=== PATIENT | male | born 1990 | race Caucasian/White ===

== ENCOUNTER 2017-02-09 11:41 | Emergency (ER) | payer SELFPAY ==
[~2017-02-09] VITALS: Ht 185.4 cm; Wt 128.5 kg
[~2017-02-09 11:41] MED LIST: DOXY100T PO; SULF1TAB47 PO; Z.0.NO CURRENT MEDS
[2017-02-09 11:54] VITALS: BP 124/82; PULSE 87; RESP 16; TEMP 97.9; O2SAT 96
--- NOTE | 2017-02-09 12:12 | PD ---
HPI Chief Complaint: Back/ Neck Pain or Injury Time Seen by Provider: 12:06 Travel History International Travel<30 days: No Contact w/Intl Traveler<30days: No Traveled to known affect area: No History of Present Illness HPI 26-year-old male presents to the emergency room for evaluation of low back pain with radiation into bilateral hips for the past week. Patient states it initially started after lifting a 500 pound barrel but worsened after he shoveled a few days later. Pain is localized to the middle lumbar region with radiation into both hips. There is no radiation down the legs. Pain is worsened with certain range of motion. He has been applying topical pain patches and heat without relief in symptoms. He has not taken anything for his symptoms. Denies upper or lower extremity paresthesias, saddle anesthesia, and loss of bowel or bladder control. Denies fever, chills, weight loss, IV drug use. PFSH Past Medical History Medical History: Denies Significant Hx Blood Disorders: No Diminished Hearing: No Tetanus Vaccination: > 5 Years Influenza Vaccination: No Past Surgical History Surgical History: No Previous Surgery Social History Alcohol Use: No Tobacco Use: No (quit 2015) Substance Use: No Allergies-Medications (Allergen,Severity, Reaction): Coded Allergies: No Known Allergies (Verified , 02/09/17) Reported Meds & Prescriptions Reported Meds & Active Scripts Active Ibuprofen 600 Mg Tab 600 Mg PO Q8HR PRN Robaxin (Methocarbamol) 750 Mg Tab 750 Mg PO Q8HR Review of Systems Except as stated in HPI: all other systems reviewed are Neg Physical Exam Narrative GENERAL: Well-nourished, well-developed male in no acute distress. Afebrile. Ambulatory. SKIN: Focused skin assessment warm/dry. HEAD: Normocephalic. EYES: No scleral icterus. No injection or drainage. NECK: Supple, trachea midline. No JVD or lymphadenopathy. CARDIOVASCULAR: Regular rate and rhythm without murmurs, gallops, or rubs. RESPIRATORY: Breath sounds equal bilaterally. No accessory muscle use. BACK: No CVA tenderness. No rash. Very mild tenderness on palpation of the midline lumbar spine. Positive straight leg raise on the right. Strength 5/5 and equal in lower extremities. Data Data Last Documented VS Vital Signs Date Time Temp Pulse Resp B/P Pulse Ox O2 Delivery O2 Flow Rate FiO2 02/09/17 11:54 97.9 87 16 124/82 96 Orders Spine, Lumbar - Ltd (Ap & Lat) (02/09/17 ) [facility] Medical Decision Making Medical Screen Exam Complete: Yes Emergency Medical Condition: Yes Medical Record Reviewed: Yes Differential Diagnosis Lumbar strain versus fracture versus degenerative disc disease versus spondylolisthesis Narrative Course 26-year-old male presents to the emergency room for evaluation of low back pain for the past week. Patient states pain started after lifting a 500 pound barrel. It is localized to the midline with radiation into bilateral hips. No focal neurological deficits. Patient has been ambulatory since onset of symptoms. No red flag symptoms. Mild midline tenderness of the lumbar spine. Positive straight leg raise. X-ray shows mild disc height loss, recommending MRI. Discharged with ibuprofen and Robaxin. Patient was told to follow-up with a primary care physician for outpatient MRI if symptoms persist. Told to return for worsening symptoms. He understands and agrees to plan. Diagnosis Primary Impression: Lumbar strain Qualified Code: S39.012A - Lumbar strain, initial encounter Referrals: [facility] Primary Care Physician Patient Instructions: General Instructions, Low Back Strain (ED) Additional Instructions: Rest and drink plenty of fluids. Take Robaxin as directed, as needed for pain. Take ibuprofen with food as directed, as needed for pain. Apply ice to the affected area for 20 minutes at a time, as needed for pain and swelling. Follow-up with a primary care physician. Return to the emergency room for worsening symptoms. Med/Other Pt SpecificInfo: Prescription(s) given Scripts Ibuprofen 600 Mg [id number] Mg PO Q8HR PRN (PAIN) #21 TAB Ref 0 Prov:Joel Tan MD 02/09/17 Methocarbamol (Robaxin)750 Mg [id number] Mg PO Q8HR #21 TAB Ref 0 Prov:Joel Tan MD 02/09/17 Disposition: 01 DISCHARGE HOME Condition: Stable Lora Brunson Feb 09, 2017 12:12
[2017-02-09] MEDS ORDERED: IBUP-232 PO (12:28)
[2017-02-09] MEDS ORDERED: ROBA750T PO (12:28)
--- NOTE | 2017-02-09 12:50 | RADHPO ---
EXAM DATE/TIME: 02/09/2017 12:17 [facility] COMPARISON: No previous studies available for comparison. INDICATIONS : Low back pain with no known injury MEDICAL HISTORY : None. SURGICAL HISTORY : None. ENCOUNTER: Initial ACUITY: 1 week PAIN SCORE: 4/10 LOCATION: Lumbar spine FINDINGS: There is minimal loss of disc space height at L5-S1. There is good preservation of vertebral body he ights. Alignment is anatomic, fracture is not appreciated. CONCLUSION: Minimal loss of disc space height L5-S1. MRI may be of benefit. Flavio Whiting MD FACR on February 09, 2017 at 12:45 Board Certified Radiologist. This report was verified electronically.
== END 2017-02-09 13:07 | disposition home or self-care (01) ==
LOC: PHEFT 11:41
DX: S39.012A Strain of muscle, fascia and tendon of lower back, initial encounter (principal); M25.551 Pain in right hip; M25.552 Pain in left hip; Z87.891 Personal history of nicotine dependence; X50.0XXA Overexertion from strenuous movement or load, initial encounter; Y93.9 Activity, unspecified; Y92.9 Unspecified place or not applicable; Y99.8 Other external cause status
CPT/HCPCS: 72100; 99283